=== PATIENT | male | born 1960 | race Caucasian/White ===

== ENCOUNTER 2016-10-17 06:43 | Observation (INO) ==
--- NOTE | 2016-10-17 07:12 | Emergency Department Note ---
Disposition Clinical Impression: Costalchondritis, Syncope Disposition: Admitted As Inpatient Condition: Fair General Adult HPI - General Chief complaint: ED Chest Pain Stated complaint: CP/syncope Time Seen by Provider: 10/17/16 07:01 Source: patient - History of Present Illness Pain Scale: 8 - Related Data Home Medications Medication Instructions Recorded Confirmed Chlorthalidone [Chlorthalidone] 25 mg PO DAILY 10/17/16 10/17/16 Labetalol HCl [Labetalol HCl] 200 mg PO BID 10/17/16 10/17/16 Lisinopril [Zestril] 20 mg PO BID 10/17/16 10/17/16 Omeprazole [PriLOSEC] 20 mg PO DAILY 10/17/16 10/17/16 Allergies Allergy/AdvReac Type Severity Reaction Status Date / Time Iodinated Contrast- Oral and Allergy Hives Verified 10/17/16 06:51 IV Dye Past Medical History - Past Medical History Medical history: Reports: hypertension Psychiatric history: Reports: no psych history - Social History Smoking Status: Current every day smoker Alcohol use: Reports: none Drug use: Reports: none Physical Exam - General General appearance: alert Course Vital Signs Temperature 97.4 F L 10/17/16 06:44 Pulse Rate 88 10/17/16 06:44 Respiratory Rate 20 10/17/16 06:44 Blood Pressure 136/97 10/17/16 06:44 O2 Sat by Pulse Oximetry 96 10/17/16 06:44 Temperature 98.2 F 10/17/16 15:51 Pulse Rate 81 10/17/16 15:51 Respiratory Rate 16 10/17/16 15:51 Blood Pressure 145/96 10/17/16 15:51 O2 Sat by Pulse Oximetry 96 10/17/16 15:51 Oxygen Delivery Oxygen Delivery Room Air Medical Decision Making - Lab Data Result diagrams: 10/17/16 07:05 10/17/16 07:05 Lab Results 10/17/16 10/17/16 10/17/16 Range/Units 07:05 07:05 07:05 WBC 14.8 H (4.3-11.1) K/mcL RBC 5.51 H (4.19-5.50) M/mcL Hgb 17.2 H (12.9-16.9) g/dL Hct 49.6 (37.5-50.1) % MCV 90.0 (83.0-100.0) fL MCH 31.2 (28.0-33.3) pg MCHC 34.7 (31.6-35.5) g/dL RDW 11.9 (11.5-14.5) % Plt Count 278 (140-400) K/mcL MPV 9.9 (9.4-12.4) fL Immature Gran % 0.8 (0-4) % Seg Neutrophils % 66.9 % Lymphocytes % 23.7 % Monocytes % 7.2 % Eosinophils % 0.9 % Basophils % 0.5 % Neutrophils # 9.9 H (1.6-8.9) K/mcL Lymphocytes # 3.5 (0.6-4.6) K/mcL Monocytes # 1.1 (0.0-1.3) K/mcL Eosinophils # 0.1 (0.0-0.6) K/mcL Basophils # 0.1 (0.0-0.2) K/mcL D-Dimer (0-500) ng/mLFEU Sodium 133 L (136-145) mEq/L Potassium 3.8 (3.5-4.5) mEq/L Chloride 95 L (98-109) mEq/L Carbon Dioxide 29 (19-29) mEq/L BUN 20 (8-26) mg/dL Creatinine 1.30 H (0.72-1.25) mg/dL Est GFR ( Amer) > 60 (> 60) Est GFR (Non-Af Amer) 57 L (> 60) BUN/Creatinine Ratio 15 (6-26) Glucose 115 H (70-99) mg/dL Calculated Osmolality 280 (280-300) Calcium 10.2 (8.6-10.8) mg/dL Troponin I 0.01 (0-0.03) ng/mL 10/17/16 Range/Units 07:05 WBC (4.3-11.1) K/mcL RBC (4.19-5.50) M/mcL Hgb (12.9-16.9) g/dL Hct (37.5-50.1) % MCV (83.0-100.0) fL MCH (28.0-33.3) pg MCHC (31.6-35.5) g/dL RDW (11.5-14.5) % Plt Count (140-400) K/mcL MPV (9.4-12.4) fL Immature Gran % (0-4) % Seg Neutrophils % % Lymphocytes % % Monocytes % % Eosinophils % % Basophils % % Neutrophils # (1.6-8.9) K/mcL Lymphocytes # (0.6-4.6) K/mcL Monocytes # (0.0-1.3) K/mcL Eosinophils # (0.0-0.6) K/mcL Basophils # (0.0-0.2) K/mcL D-Dimer 710 H (0-500) ng/mLFEU Sodium (136-145) mEq/L Potassium (3.5-4.5) mEq/L Chloride (98-109) mEq/L Carbon Dioxide (19-29) mEq/L BUN (8-26) mg/dL Creatinine (0.72-1.25) mg/dL Est GFR ( Amer) (> 60) Est GFR (Non-Af Amer) (> 60) BUN/Creatinine Ratio (6-26) Glucose (70-99) mg/dL Calculated Osmolality (280-300) Calcium (8.6-10.8) mg/dL Troponin I (0-0.03) ng/mL Attestation Statement - Attestation Attestation: I examined this patient and my medical decision-making was reviewed with the Resident Physician. I agree with the documented findings, disposition and treatment plan as described except to the extent set forth below. [id number] time provided Patient presents to the treatment area complaining of syncopal episode and pleuritic type chest pain. He appears in no acute distress on exam. EKG reviewed by me. Pain seen in conjunction with the resident physician Dr. Traore 09:43: Patient declines admission. He had a discussion with the resident physician and could not be convinced to stay. He is signing out against medical advice. All tests reviewed by me 09:48: Patient now agreeable to be admitted
[2016-10-17 07:20] LABS: Basophils # 0.1 K/mcL (0.0-0.2); Basophils % 0.5 %; Eosinophils # 0.1 K/mcL (0.0-0.6); Eosinophils % 0.9 %; Hematocrit 49.6 % (37.5-50.1); Hemoglobin 17.2 g/dL (12.9-16.9); Immature Granulocytes % 0.8 % (0-4); Lymphocytes # 3.5 K/mcL (0.6-4.6); Lymphocytes % 23.7 %; Mean Corpuscular HGB Conc 34.7 g/dL (31.6-35.5); Mean Corpuscular Hemoglobin 31.2 pg (28.0-33.3); Mean Platelet Volume 9.9 fL (9.4-12.4); Monocytes # 1.1 K/mcL (0.0-1.3); Monocytes % 7.2 %; Neutrophils # 9.9 K/mcL (1.6-8.9); Platelet Count 278 K/mcL (140-400); Red Blood Count 5.51 M/mcL (4.19-5.50); Red Cell Distribution Width 11.9 % (11.5-14.5); Segmented Neutrophils % 66.9 %
[2016-10-17] MEDS ORDERED: 0.9 % Sodium Chloride 1,000 ML IVC ONE (07:22)
[2016-10-17] MEDS ORDERED: Aspirin 325 MG TABLET PO ONE (07:22)
--- NOTE | 2016-10-17 07:26 | Emergency Department Note ---
Disposition Clinical Impression: Costalchondritis, Syncope Disposition: Admitted As Inpatient Condition: Fair Time of Disposition: 11:17 Chest Pain HPI - General Chief Complaint: ED Chest Pain Stated Complaint: CP/syncope Time Seen by Provider: 10/17/16 07:01 Source: patient Mode of arrival: ambulatory Limitations: no limitations Vital Signs Reviewed: Yes Nursing Notes Reviewed: Yes - History of Present Illness HPI Narrative: Patient presents to the ED with the chief complaint of left-sided chest pain and syncope. Patient reports last night he had an unprovoked syncopal episode. States that he woke up face down on his bathroom floor and does not know either he got there. After this first syncopal episode. He started having some left lateral chest discomfort that he describes as sharp, stabbing, pleuritic, also worse with movement and not with palpation. He did not get short of breath, lightheaded, dizzy with any of this. No headaches or changes in vision. 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 Reports that he decided to wait until this morning. They come in because he was unable to drive at night. Denies any history of coronary artery disease or CHF. No history DVT or PE. No history of malignancy or hormone replacement. No recent surgeries or recent long travel Severity scale (1-10): 8 - Related Data Home Medications Medication Instructions Recorded Confirmed Chlorthalidone [Chlorthalidone] 25 mg PO DAILY 10/17/16 10/17/16 Labetalol HCl [Labetalol HCl] 200 mg PO BID 10/17/16 10/17/16 Lisinopril [Zestril] 20 mg PO BID 10/17/16 10/17/16 Omeprazole [PriLOSEC] 20 mg PO DAILY 10/17/16 10/17/16 Allergies Allergy/AdvReac Type Severity Reaction Status Date / Time Iodinated Contrast- Oral and Allergy Hives Verified 10/17/16 06:51 IV Dye All systems ED: reviewed and negative except as stated. Constitutional: Denies: fever Cardiovascular: Reports: chest pain Respiratory: Denies: cough Gastrointestinal: Denies: nausea Chest Pain PMH - Past Medical History Medical history: Reports: hypertension Psychiatric history: Reports: no psych history - Social History Smoking Status: Current every day smoker Alcohol use: Reports: none Drug use: Reports: none Physical Exam - General Limitations: no limitations General appearance: alert, in no apparent distress - Head Head exam: atraumatic, normocephalic, normal inspection - Eye Eye exam: Present: normal appearance, PERRL, EOMI - ENT ENT exam: normal exam, normal oropharynx, mucous membranes moist - Neck Neck exam: Present: normal inspection, full ROM, trachea midline - Chest Chest inspection: Present: normal inspection, symmetric chest wall rise. Absent : tenderness (No tenderness, but patient's pain is isolated along the sixth or seventh rib on the left) - Respiratory Respiratory exam: Present: normal lung sounds bilaterally - Cardiovascular Cardiovascular exam: Present: regular rate, normal rhythm, normal heart sounds - Abdominal Exam Abdominal exam: Present: soft, Non-Tender. Absent: tenderness, distention, guarding, rebound, rigidity - Extremities Exam Extremities exam: Present: normal inspection, full ROM. Absent: tenderness, pedal edema - Back Exam Back exam: Present: normal inspection, full ROM. Absent: tenderness - Neurological Exam Neurological exam: Present: alert, oriented X3 - Psychiatric Psychiatric exam: Present: normal affect, normal mood - Skin Skin exam: Present: warm, dry, intact, normal color Course Course Narrative: Chest pain workup, PE also considered due to pleuritic pain and syncope. We will order a d-dimer. We will also order a CT of his brain due to history of aneurysms and syncope. - Reevaluation(s) Reevaluation #1: Patient's d-dimer is slightly elevated. We will order a CT of his chest. He does not now. Allergies contrast, but he states this is just a mild itching. He was okay with proceeding after a dose of Benadryl. Time: 07:54 Reevaluation #2: CTA negative but will admit for further syncope workup. Patient and family agreeable with plan Vital Signs Temperature 97.4 F L 10/17/16 06:44 Pulse Rate 88 10/17/16 06:44 Respiratory Rate 20 10/17/16 06:44 Blood Pressure 136/97 10/17/16 06:44 O2 Sat by Pulse Oximetry 96 10/17/16 06:44 Temperature 97.4 F L 10/17/16 06:44 Pulse Rate 68 10/17/16 09:52 Respiratory Rate 0 10/17/16 11:00 Blood Pressure 0/0 10/17/16 11:00 O2 Sat by Pulse Oximetry 98 10/17/16 09:52 Oxygen Delivery Oxygen Delivery Room Air Chest Pain - Medical Records Medical records reviewed: Yes I reviewed the patient's medical records. - Lab Data Lab results reviewed: Yes I reviewed the patient's lab results. Result diagrams: 10/17/16 07:05 10/17/16 07:05 Lab Results 10/17/16 10/17/16 10/17/16 Range/Units 07:05 07:05 07:05 WBC 14.8 H (4.3-11.1) K/mcL RBC 5.51 H (4.19-5.50) M/mcL Hgb 17.2 H (12.9-16.9) g/dL Hct 49.6 (37.5-50.1) % MCV 90.0 (83.0-100.0) fL MCH 31.2 (28.0-33.3) pg MCHC 34.7 (31.6-35.5) g/dL RDW 11.9 (11.5-14.5) % Plt Count 278 (140-400) K/mcL MPV 9.9 (9.4-12.4) fL Immature Gran % 0.8 (0-4) % Seg Neutrophils % 66.9 % Lymphocytes % 23.7 % Monocytes % 7.2 % Eosinophils % 0.9 % Basophils % 0.5 % Neutrophils # 9.9 H (1.6-8.9) K/mcL Lymphocytes # 3.5 (0.6-4.6) K/mcL Monocytes # 1.1 (0.0-1.3) K/mcL Eosinophils # 0.1 (0.0-0.6) K/mcL Basophils # 0.1 (0.0-0.2) K/mcL D-Dimer (0-500) ng/mLFEU Sodium 133 L (136-145) mEq/L Potassium 3.8 (3.5-4.5) mEq/L Chloride 95 L (98-109) mEq/L Carbon Dioxide 29 (19-29) mEq/L BUN 20 (8-26) mg/dL Creatinine 1.30 H (0.72-1.25) mg/dL Est GFR ( Amer) > 60 (> 60) Est GFR (Non-Af Amer) 57 L (> 60) BUN/Creatinine Ratio 15 (6-26) Glucose 115 H (70-99) mg/dL Calculated Osmolality 280 (280-300) Calcium 10.2 (8.6-10.8) mg/dL Troponin I 0.01 (0-0.03) ng/mL 10/17/16 Range/Units 07:05 WBC (4.3-11.1) K/mcL RBC (4.19-5.50) M/mcL Hgb (12.9-16.9) g/dL Hct (37.5-50.1) % MCV (83.0-100.0) fL MCH (28.0-33.3) pg MCHC (31.6-35.5) g/dL RDW (11.5-14.5) % Plt Count (140-400) K/mcL MPV (9.4-12.4) fL Immature Gran % (0-4) % Seg Neutrophils % % Lymphocytes % % Monocytes % % Eosinophils % % Basophils % % Neutrophils # (1.6-8.9) K/mcL Lymphocytes # (0.6-4.6) K/mcL Monocytes # (0.0-1.3) K/mcL Eosinophils # (0.0-0.6) K/mcL Basophils # (0.0-0.2) K/mcL D-Dimer 710 H (0-500) ng/mLFEU Sodium (136-145) mEq/L Potassium (3.5-4.5) mEq/L Chloride (98-109) mEq/L Carbon Dioxide (19-29) mEq/L BUN (8-26) mg/dL Creatinine (0.72-1.25) mg/dL Est GFR ( Amer) (> 60) Est GFR (Non-Af Amer) (> 60) BUN/Creatinine Ratio (6-26) Glucose (70-99) mg/dL Calculated Osmolality (280-300) Calcium (8.6-10.8) mg/dL Troponin I (0-0.03) ng/mL - Radiology Data Radiology results reviewed: Yes I reviewed the patient's radiology results. - EKG Data EKG attestation: Yes I reviewed and interpreted this EKG. EKG results narrative: Sinus rhythm, rate 85, [place] interval 163, QRS 95, QTC 410, normal axis, no acute ischemic changes
[2016-10-17 07:30] LABS: BUN/Creatinine Ratio 15 (6-26); Blood Urea Nitrogen 20 mg/dL (8-26); Calcium 10.2 mg/dL (8.6-10.8); Carbon Dioxide 29 mEq/L (19-29); Chloride 95 mEq/L (98-109); Glucose 115 mg/dL (70-99); Osmolality,Calculated 280 (280-300); Potassium 3.8 mEq/L (3.5-4.5); Sodium 133 mEq/L (136-145); eGFR For African Americans > 60 (> 60); eGFR For Non-African Americans 57 (> 60)
[2016-10-17] MEDS ORDERED: Acetaminophen 325 MG TABLET PO PRN (10:34)
[2016-10-17] MEDS ORDERED: Naloxone 0.4 MG/ML INJ IVP PRN (10:34)
--- NOTE | 2016-10-17 12:09 | Internal Med History&Physical ---
<Annabel Matias M - Last Filed: 10/17/16 12:06> Date of Encounter: 10/17/16 Time of Encounter: 12:06 Assessment and Plan (1) Syncope Current visit: Yes Status: Acute Patient reports 3 episodes of syncope last night. Syncope was preceded by brief sensation of weakness and lightheadedness. After episodes, he had diarrhea and cold sweat. Patient reports this happened to him when he had his previous aneurysms. He also reports he think he may have taken his evening medication twice, which includes 200mg of labatalol and lisinopril. It's possible syncope is secondary to drug induced hypotension. CT head was negative for acute abnormality. EKG showed NSR. Continuous bonding supervisor echocardiogram carotid dopplers orthostatic vital signs Hold BP meds for Systolic BP < 100. fall precautions Qualifiers: Syncope type: unspecified Qualified Code(s): R55 - Syncope and collapse (2) Chest pain Current visit: Yes Status: Acute Patient reports after 3 episodes of syncope last evening, he had pain in his lateral left chest, worse with movement. He denies any shortness of breath. EKG showed no ischemic changes and troponin was negative at 0.01. Patient did fall during syncopal episodes and he has small laceration on left taoism, so it' s possible he fell on his left side and pain is related to that. Will trend troponins. continuous bonding supervisor and echocardiogram. Qualifiers: Chest pain type: unspecified Qualified Code(s): R07.9 - Chest pain, unspecified (3) MARIA D (acute kidney injury) Current visit: Yes Status: Acute Creatinine of 1.30. Patient denies any history of kidney problems. Will hold lisinopril and chlorthalidone. Gently hydrate with 0.9NS at 75mL/hr. Check chemistry daily. (4) Leukocytosis Current visit: Yes Status: Acute WBC elevated to 14.8. Patient is afebrile and denies any cough, dysuria. Patient reports episode of diarrhea last night and painless bloody stool this morning, with reported history of diverticulitis. CXR shows no evidence of acute disease. UA ordered. Stool cultures and GI panel ordered. Qualifiers: Leukocytosis type: unspecified Qualified Code(s): D72.829 - Elevated white blood cell count, unspecified (5) Hematochezia Current visit: Yes Status: Acute Patient reports episode of painless bloody stool today, as well as 3 days ago. He reports he has a history of diverticulitis, and this happens from time to time. Will get FOB, GI panel and stool culture. Hgb and Hct are stable. (6) DVT prophylaxis Current visit: Yes Status: Acute sequential compression devices. Internal Medicine - H&P: HPI Chief complaint: syncope History of present illness: Mr. Lopez is a 56 year old male with hypertension, diverticulitis, history of brain aneurysms status post clipping presented to the emergency department today with complaints of syncope. Patient reports that last evening he had a sensation of lightheadedness and weakness and then passed out this happened 3 times and was followed by diarrhea and cold sweats. He also had chest pain on the left lateral side of his chest, worse with movement, that lasted all night. This morning he had a painless bloody bowel movement, and reports he had one 3 days ago as well. He reports he has a history of diverticulitis and this happens from time to time. He denies any fevers, dysuria, nausea, vomiting, abdominal pain. He denies any shortness of breath, cough, palpitations. Evaluation in emergency department revealed elevated white blood cell count of 14.8. Creatinine was also elevated at 1.30. Troponin was normal at 0.01. D- dimer was mildly elevated at 710. EKG showed normal sinus rhythm with no ischemic changes. Head CT was stable with no acute intracranial abnormality. Chest x-ray showed no evidence of acute disease. CTA showed no evidence of PE or acute pulmonary abnormality. On exam, patient alert and oriented, in no acute distress. Heart has regular rate and rhythm, lungs clear bilaterally to auscultation. Abdomen is soft nontender with positive bowel sounds. No peripheral edema. Cranial nerves are intact with no focal deficits. Past Med Surg Social Fam HX - Past Medical History Medical history: hypertension, other (brain aneurysms s/p clipping, diverticulitis) Psychiatric history: no psych history - Past Surgical History Surgical History: orthopedic, other (leg), vascular surgery (aneurysm clipping x 2 ) - Social History Smoking Status: Current every day smoker (39 pack year history) Packs per day: 1 Alcohol use: none Drug use: none - Family History Father Living Status: Still Living Hx Family Cardiac Disorders: Yes (HTN) Hx Family Endocrine Disorder: Yes (DM) Mother Living Status: Cause of : CHF Hx Family Cardiac Disorders: Yes Hx Family Endocrine Disorder: Yes (DM) Internal Medicine - H&P: Meds Chlorthalidone [Chlorthalidone] 25 mg PO DAILY 10/17/16 [History] Labetalol HCl [Labetalol HCl] 200 mg PO BID 10/17/16 [History] Lisinopril [Zestril] 20 mg PO BID 10/17/16 [History] Omeprazole [PriLOSEC] 20 mg PO DAILY 10/17/16 [History] 3 Allergy/AdvReac Type Severity Reaction Status Date / Time Iodinated Contrast- Oral and Allergy Hives Verified 10/17/16 06:51 IV Dye All Systems PM: A 10-system review of systems was performed and is negative for pertinent findings except as documented above in the HPI. - Constitutional Constitutional: no chills, no fever(s), no night sweats - EENT Eyes: no change in vision, no discharge, no pain, no photophobia Ears: no ear discharge, no ear pain, no tinnitus Nose, mouth and throat: no dysphagia, no nasal discharge, no neck pain, no sore throat - Cardiovascular Cardiovascular ROS IM: chest pain, diaphoresis, lightheadedness, syncope, no dyspnea, no palpitations - Respiratory Respiratory: no cough, no dyspnea, no wheezing, no excessive phlegm production - Gastrointestinal Gastrointestinal: diarrhea, hematochezia, no abdominal pain, no hematemesis, no melena, no nausea, no vomiting - Musculoskeletal Musculoskeletal ROS IM: no numbness, no tingling - Integumentary Integumentary IM: no rash, no unusual bruising - Neurological Neurological ROS: no confusion, no convulsions, no focal weakness, no numbness, no tingling, no tremor(s) - Hematologic/Lymphatic Hematologic/Lymphatic: no easy bruising - Constitutional Vitals: Temp Pulse Resp BP Pulse Ox 97.4 F L 68 0 0/0 98 10/17/16 06:44 10/17/16 09:52 10/17/16 11:00 10/17/16 11:00 10/17/16 09:52 General appearance: Present: A&O X 3, pleasant, no acute distress - Head Head exam: Present: atraumatic, normocephalic - Eye Eye exam: Present: PERRL, conjuntiva pink, sclera anicteric Pupils: Present: PERRL - Neck Neck exam general surgery: Present: supple, trachea midline. Absent: lymphadenopathy - Respiratory Respiratory exam: Present: CTAB. Absent: accessory muscle use, rales, rhonchi, wheezes - Cardiovascular Cardiovascular exam: Present: RRR, +S1, +S2. Absent: diastolic murmur, gallop, rubs, systolic murmur - GI/Abdominal GI/Abdominal exam: Present: normal bowel sounds, soft, no peritoneal signs. Absent: distended, tenderness - Extremities Exam Extremities exam: Present: warm, radial pulses palpable and symmetrical. Absent : calf tenderness, cyanotic, pedal edema - Neurological Exam Neurological exam: Present: CN II-XII intact, oriented X3, no focal deficits. Absent: pronater drift, facial droop, speech deficit - Skin Skin exam: Present: dry, intact Internal Med - H&P Results - Labs CBC & Chem 7: 10/17/16 07:05 10/17/16 07:05 Labs: All Lab Results (24 Hours) 10/17/16 10/17/16 10/17/16 Range/Units 07:05 07:05 07:05 WBC 14.8 H (4.3-11.1) K/mcL RBC 5.51 H (4.19-5.50) M/mcL Hgb 17.2 H (12.9-16.9) g/dL Hct 49.6 (37.5-50.1) % MCV 90.0 (83.0-100.0) fL MCH 31.2 (28.0-33.3) pg MCHC 34.7 (31.6-35.5) g/dL RDW 11.9 (11.5-14.5) % Plt Count 278 (140-400) K/mcL MPV 9.9 (9.4-12.4) fL Immature Gran % 0.8 (0-4) % Seg Neutrophils % 66.9 % Lymphocytes % 23.7 % Monocytes % 7.2 % Eosinophils % 0.9 % Basophils % 0.5 % Neutrophils # 9.9 H (1.6-8.9) K/mcL Lymphocytes # 3.5 (0.6-4.6) K/mcL Monocytes # 1.1 (0.0-1.3) K/mcL Eosinophils # 0.1 (0.0-0.6) K/mcL Basophils # 0.1 (0.0-0.2) K/mcL D-Dimer (0-500) ng/mLFEU Sodium 133 L (136-145) mEq/L Potassium 3.8 (3.5-4.5) mEq/L Chloride 95 L (98-109) mEq/L Carbon Dioxide 29 (19-29) mEq/L BUN 20 (8-26) mg/dL Creatinine 1.30 H (0.72-1.25) mg/dL Est GFR ( Amer) > 60 (> 60) Est GFR (Non-Af Amer) 57 L (> 60) BUN/Creatinine Ratio 15 (6-26) Glucose 115 H (70-99) mg/dL Calculated Osmolality 280 (280-300) Calcium 10.2 (8.6-10.8) mg/dL Troponin I 0.01 (0-0.03) ng/mL 10/17/16 Range/Units 07:05 WBC (4.3-11.1) K/mcL RBC (4.19-5.50) M/mcL Hgb (12.9-16.9) g/dL Hct (37.5-50.1) % MCV (83.0-100.0) fL MCH (28.0-33.3) pg MCHC (31.6-35.5) g/dL RDW (11.5-14.5) % Plt Count (140-400) K/mcL MPV (9.4-12.4) fL Immature Gran % (0-4) % Seg Neutrophils % % Lymphocytes % % Monocytes % % Eosinophils % % Basophils % % Neutrophils # (1.6-8.9) K/mcL Lymphocytes # (0.6-4.6) K/mcL Monocytes # (0.0-1.3) K/mcL Eosinophils # (0.0-0.6) K/mcL Basophils # (0.0-0.2) K/mcL D-Dimer 710 H (0-500) ng/mLFEU Sodium (136-145) mEq/L Potassium (3.5-4.5) mEq/L Chloride (98-109) mEq/L Carbon Dioxide (19-29) mEq/L BUN (8-26) mg/dL Creatinine (0.72-1.25) mg/dL Est GFR ( Amer) (> 60) Est GFR (Non-Af Amer) (> 60) BUN/Creatinine Ratio (6-26) Glucose (70-99) mg/dL Calculated Osmolality (280-300) Calcium (8.6-10.8) mg/dL Troponin I (0-0.03) ng/mL - Diagnostic Studies CT scan - head Additional comments: Head CT 10/17/16 07:10 IMPRESSION: Stable exam. No acute intracranial abnormality. Status post bilateral frontotemporal craniotomy/craniectomy, with multiple clips in the region of the bilateral MCA bifurcations. 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 D/ / Lloyd Francis MD / Lloyd Francis MD Interpreting Provider: Lloyd Francis MD Chest x-ray Additional comments: Chest X-Ray 10/17/16 06:51 IMPRESSION: No evidence of acute disease. D/ / Lukas Shelton MD / Lukas Shelton MD Interpreting Provider: Lukas Shelton MD CT scan - abdomen Additional comments: Chest CTA 10/17/16 07:46 IMPRESSION: No evidence of pulmonary embolism or acute pulmonary abnormality. D/ / Lukas Shelton MD / Lukas Shelton MD Interpreting Provider: Lukas Shelton MD <Lorie Milner - Last Filed: 10/17/16 18:04> Date of Encounter: 10/17/16 Time of Encounter: 15:30 Internal Medicine - H&P: HPI History of present illness: Mr. Lopez is a 56 year old male All Systems PM: A 10-system review of systems was performed and is negative for pertinent findings except as documented above in the HPI. - Constitutional Vitals: Temp Pulse Resp BP Pulse Ox 98.2 F 81 16 145/96 96 10/17/16 15:51 10/17/16 15:51 10/17/16 15:51 10/17/16 15:51 10/17/16 15:51 Internal Med - H&P Results - Labs CBC & Chem 7: 10/17/16 07:05 10/17/16 07:05 Labs: Cardiac Enzymes 10/17/16 Range/Units 12:31 Troponin I 0.01 (0-0.03) ng/mL Urine 10/17/16 Range/Units 17:15 Urine Color Yellow (Yellow) Urine Clarity Clear (Clear) Urine pH 6.0 (5.0-8.0) pH Units Ur Specific [place] 1.027 H (1.010-1.025) Urine Protein Negative (Neg-Trace) mg/dL Urine Glucose (UA) Normal (Normal) mg/dL - Attending Attestation Pt seen and examined. Admitted for syncope. concern for drug induced syncope. will admit overnight for observation and rule out cardiogenic causes contributing to syncope Case discussed with OLIVER Matias, I agree with her documented findings, assessment, and plan.
[2016-10-17] MEDS: 0.9 % Sodium Chloride 1,000 ML IVC SCH (13:07)
[2016-10-17 17:36] LABS: Bilirubin,Urine Negative (Negative); Blood,Urine Negative (Negative); Clarity,Urine Clear (Clear); Color,Urine Yellow (Yellow); Glucose,Urine (UA) Normal (Normal); Ketones,Urine Negative (Negative); Leukocyte Esterase,Urine Negative (Negative); Nitrite,Urine Negative (Negative); Protein,Urine Negative (Neg-Trace); Specific Gravity,Urine 1.027 (1.010-1.025); Urobilinogen,Urine Normal (Normal)
[2016-10-17] MEDS ORDERED: Lisinopril 20 MG TABLET PO SCH ×2 (21:00)
[2016-10-17 21:53] LABS: C.difficile Toxin A/B by PCR Not detected (Not detect); Campylobacter by PCR ***DETECTED*** (Not detect); Enteroaggregative E.coli(EAEC) Not detected (Not detect); Enteropathogenic E.coli(EPEC) Not detected (Not detect); Enterotoxigenic E.coli (ETEC) Not detected (Not detect); Plesiomonas shigelloides PCR Not detected (Not detect); Salmonella PCR Not detected (Not detect); Shigalike tox-prod E coli STEC Not detected (Not detect); Vibrio PCR Not detected (Not detect); Vibrio cholerae PCR Not detected (Not detect); Yersinia enterocolitica PCR Not detected (Not detect)
[2016-10-17 21:54] LABS: Adenovirus F 40/41 PCR Not detected (Not detect); Astrovirus PCR Not detected (Not detect); Cryptosporidium by PCR Not detected (Not detect); Cyclospora cayetanensis PCR Not detected (Not detect); E. coli O157 by PCR Not detected (Not detect); Entamoeba histolytica PCR Not detected (Not detect); Giardia lamblia PCR Not detected (Not detect); Norovirus GI/GII PCR Not detected (Not detect); Rotavirus A PCR Not detected (Not detect); Sapovirus PCR Not detected (Not detect); Shig/EnteroinvasiveE coli EIEC Not detected (Not detect)
[2016-10-18] MEDS: 0.9 % Sodium Chloride 1,000 ML IVC SCH (02:48)
[2016-10-18 06:08] LABS: Basophils # 0.1 K/mcL (0.0-0.2); Basophils % 1.7 %; Eosinophils # 0.4 K/mcL (0.0-0.6); Eosinophils % 4.5 %; Hematocrit 43.4 % (37.5-50.1); Immature Granulocytes % 0.2 % (0-4); Lymphocytes # 3.2 K/mcL (0.6-4.6); Lymphocytes % 38.7 %; Mean Corpuscular Hemoglobin 31.9 pg (28.0-33.3); Mean Platelet Volume 10.1 fL (9.4-12.4); Monocytes # 0.6 K/mcL (0.0-1.3); Monocytes % 7.8 %; Neutrophils # 3.9 K/mcL (1.6-8.9); Platelet Count 236 K/mcL (140-400); Red Blood Count 4.77 M/mcL (4.19-5.50); Red Cell Distribution Width 11.9 % (11.5-14.5); Segmented Neutrophils % 47.1 %
[2016-10-18 06:10] LABS: Hemoglobin 15.2 g/dL (12.9-16.9)
[2016-10-18 06:22] LABS: BUN/Creatinine Ratio 16 (6-26); Blood Urea Nitrogen 13 mg/dL (8-26); Calcium 8.8 mg/dL (8.6-10.8); Carbon Dioxide 28 mEq/L (19-29); Chloride 104 mEq/L (98-109); Chol/HDL Ratio 3.9 (0-4.9); Cholesterol 128 mg/dL (< 200); Glucose 85 mg/dL (70-99); HDL Cholesterol 33 mg/dL (40-59); LDL Cholesterol,Calculated 80 mg/dL (0-99); Osmolality,Calculated 289 (280-300); Potassium 3.6 mEq/L (3.5-4.5); Sodium 140 mEq/L (136-145); Triglycerides 73 mg/dL (< 150); eGFR For African Americans > 60 (> 60); eGFR For Non-African Americans > 60 (> 60)
--- NOTE | 2016-10-18 09:23 | Discharge Summary ---
Date of Encounter: 10/18/16 Time of Encounter: 09:00 - Discharge Diagnosis (1) Syncope Priority: Primary Status: Acute Comments: Unclear causation. Patient could have very well vasovagaled during his diarrhea episodes. Patient stating he also may have taken his nighttime meds twice which would include 200 mg of labetalol and lisinopril. While this doubling up of his medications could have played a factor, ruled out ischemic colitis especially given his history and his hypocoagulable state upon arrival- abdominal CT unremarkable. Qualifiers: Syncope type: unspecified Qualified Code(s): R55 - Syncope and collapse (2) Chest pain Priority: Primary Status: Ruled-out Comments: Patient with point tenderness to his left lateral chest consistent with musculoskeletal etiology. Patient stated he fell and hit the side of his chest. Troponins negative 3. Chest x-ray negative. CTA negative. ACS ruled out. Qualifiers: Chest pain type: unspecified Qualified Code(s): R07.9 - Chest pain, unspecified (3) Costalchondritis Priority: Primary Status: Acute (4) Campylobacter diarrhea Priority: Primary Status: Acute Comments: Given the recurrence of these infections in this patient, will treat with Cipro for 3 days (5) MARIA D (acute kidney injury) Priority: Primary Status: Resolved (6) Leukocytosis Priority: Primary Status: Resolved Qualifiers: Leukocytosis type: unspecified Qualified Code(s): D72.829 - Elevated white blood cell count, unspecified (7) Hematochezia Priority: Primary Status: Acute Comments: one episode. Patient stating this is normal for him. He states that approximately once every year or so, he will have a painless bloody bowel movement and then they will go away. He states that he has had several tests including colonoscopy that were all unremarkable. Hemodynamically stable. Tolerating regular diet. No abdominal pain-abdominal CT negative. (8) DVT prophylaxis Priority: Primary Status: Acute Comments: Observation patient. Up ad salvador. - Discharge Medications Prescriptions: Ciprofloxacin HCl 750 mg PO BID #5 tablet Home Medications: Chlorthalidone 25 mg PO DAILY 10/17/16 [History] Labetalol HCl 200 mg PO BID 10/17/16 [History] Lisinopril [Zestril] 20 mg PO BID 10/17/16 [History] Omeprazole [PriLOSEC] 20 mg PO DAILY 10/17/16 [History] Ciprofloxacin HCl 750 mg PO BID #5 tablet 10/18/16 [Rx] Allergies/Adverse Reactions: 3 Allergy/AdvReac Type Severity Reaction Status Date / Time Iodinated Contrast- Oral and Allergy Hives Verified 10/17/16 06:51 IV Dye Procedures/tests Complete & Pending: Procedures Performed prior 72 hours Category Date Time Status EV carotid duplex imaging BI Routine Y 10/17/16 10:36 Completed EV echocardiogram Routine Y 10/17/16 10:36 Completed Date of admission: 10/17/16 10:06 Primary care physician: Jose Luis Nicholson Jr, MD Discharging clinician: Bonnie Vyas Anticipated date of discharge: 10/18/16 - Patient Status Disposition: Home, Self-Care Condition: Fair Functional capacity at discharge: independent ambulation Overall status at discharge: patient is back to baseline - Discharge Instructions Follow Up With: Taylor Hurley CNP [Advanced Practice Nurse] - 10/26/16 11:30 am Additional Instructions: Follow-up with primary care provider as scheduled - Diet and Activity Activity: increase activity as tolerated Diet: low salt diet Hospital course: Mr. Lopez is a 56 year old male with past medical history of hypertension, diverticulitis, brain aneurysm status post clipping, tobacco abuse. Patient presented to the emergency department with a chief complaint of syncope. Patient stating on the morning prior to presentation, he had a sensation of lightheadedness, weakness, and then he passed out. Patient stating this happened 3 times and was followed by diarrhea and cold sweats. Patient also stating he had chest pain on the left lateral side of his chest that is worsened with movement and lasted all night on the night prior to presentation. On the morning of presentation, patient had a painless bloody bowel movement and reports that he had one 3 days prior to presentation as well. Patient endorsing history diverticulitis and states that bloody bowel movements occur from time to time and are self-limiting. He denied any fevers dysuria, nausea vomiting or abdominal pain. He denied shortness of breath, cough, palpitations. Workup in the emergency department notable for mild leukocytosis and mild acute kidney injury. Chest x-ray negative. Head CT negative. CTA unremarkable for acute processes. Urinalysis negative. Patient was admitted to the hospitalist service for further evaluation and management. For syncopal workup, echocardiogram was obtained which revealed ejection fraction of 66 5%, bundle branch block, mild diastolic dysfunction. Patient euvolemic on examination throughout this admission. He denies shortness of breath or chest pain throughout this admission. Regarding his bloody bowel movement, stool culture was positive for Campylobacter and his guaiac was also positive. He was treated with ciprofloxacin while admitted. Patient denied abdominal pain during this admission. He was able to tolerate a regular diet. Abdominal CT was performed to rule out ischemic colitis and it was unremarkable for acute processes. Leukocytosis resolved. Acute kidney injury resolved. Given the recurrence of these episodes, he was sent home on a 3 day course of ciprofloxacin. Another contributing factor could have been the fact that the patient feels as if he took his nighttime medications twice on the night prior to presentation which would have included 200 mg of labetalol and lisinopril. Episodes could have been drug-induced. Patient did have some point tenderness to his chest consistent with musculoskeletal etiology. Troponins negative 3. Patient stating he had his chest when he fell. ACS ruled out. Acute intra- abdominal processes ruled out. He remained hemodynamically stable with stable vital signs. He was discharged home in stable condition with close outpatient follow-up recommended. ITS Impressions Chest X-Ray 10/17/16 06:51 IMPRESSION: No evidence of acute disease. D/ / Lukas Shelton MD / Lukas Shelton MD Interpreting Provider: Lukas Shelton MD Head CT 10/17/16 07:10 IMPRESSION: Stable exam. No acute intracranial abnormality. Status post bilateral frontotemporal craniotomy/craniectomy, with multiple clips in the region of the bilateral MCA bifurcations. 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 D/ / Lloyd Francis MD / Lloyd Francis MD Interpreting Provider: Llyod Francis MD Chest CTA 10/17/16 07:46 IMPRESSION: No evidence of pulmonary embolism or acute pulmonary abnormality. D/ / Lukas Shelton MD / Lukas Shelton MD Interpreting Provider: Lukas Shelton MD Abdomen/Pelvis CT 10/18/16 09:29 IMPRESSION: 1. No acute abnormality in the abdomen/pelvis. 2. Nonobstructing left renal calculus. 3. Diverticulosis. 4. Hepatic steatosis. D/ / 10/18/2016 10:36:49 Pedro Sandra MD / marilyn Interpreting Provider: Pedro Sandra MD Echocardiogram Date of Study: 10/17/2016 Impressions: LVEF 60-65%. Normal LV chamber size, wall thickness and function. Atypical septal motion consistent with bundle branch block. Mild left ventricular diastolic dysfunction. Normal right ventricular structure and function. No evidence of pulmonary hypertension. No significant valvular dysfunction. - Time Spent with Patient Total time spent providing and/or coordinating discharge services: - Constitutional Vitals: Temp Pulse Resp BP Pulse Ox 97.6 F 72 16 125/86 95 10/18/16 06:24 10/18/16 06:24 10/18/16 06:24 10/18/16 06:24 10/18/16 06:24 General appearance: Present: A&O X 3, pleasant, no acute distress, answers questions appropriately - Head Head exam: Present: atraumatic, normocephalic - Eye Eye exam: Present: PERRL, conjuntiva pink, sclera anicteric Pupils: Present: PERRL - Neck Neck exam general surgery: Present: supple, trachea midline. Absent: lymphadenopathy - Respiratory Respiratory exam: Present: decreased breath sounds. Absent: accessory muscle use, rales, respiratory distress, rhonchi, wheezes - Cardiovascular Cardiovascular exam: Present: RRR, +S1, +S2. Absent: diastolic murmur, gallop, rubs, systolic murmur - GI/Abdominal GI/Abdominal exam: Present: normal bowel sounds, soft, no peritoneal signs. Absent: distended, tenderness - Extremities Exam Extremities exam: Present: warm, radial pulses palpable and symmetrical. Absent : calf tenderness, cyanotic, pedal edema - Neurological Exam Neurological exam: Present: alert, CN II-XII intact, normal gait, oriented X3, no focal deficits, strengths equal and symetr throughout. Absent: pronater drift, facial droop, speech deficit - Expanded Psychiatric Exam Focused psych exam: Present: restlessness - Skin Skin exam: Present: dry, intact, normal color, warm
[2016-10-18 10:45] VITALS: BP 154/97
--- NOTE | 2016-10-18 12:55 | Carotid Imaging Report ---
Carotid Duplex Patient Name:Austin Lopez Order Number:[id number] Procedure Date:10/17/2016 Date:1960ge:56 yrs Gender:Male Lt BP:119 / 82 mmHg Rt.BP:115 / 82 mmHgHeart Rate: Location:[facility] Room #: 3B16 Drawing Tracer:Nuvia Nuñez, RDDEISY Referring MD:Annabel Matias [employer]IE[employer] MECH[employer]ICAL OFFICER hepatology physician:Jose Luis Nicholson MD Reading MD:Jaspreet Kat MD Primary Indications:Syncope Risk Factors Yes/No Hypertension Yes Diabetes No Hypercholesterolemia Yes Smoking Current Yes Hx of TIA No Hx of CVA No Previous Vascular Surgery No Impressions: Findings: Bilateral carotid system has nonstenotic plaque. Findings Carotid Duplex: Right: The right proximal common carotid artery has a PSV of 72 cm/s and a EDV of 20 cm/s. The right mid common carotid artery has a PSV of 68 cm/s and a EDV of 23 cm/s. The right distal common carotid artery has a PSV of 61 cm/s and a EDV of 17 cm/s. There is nonstenotic plaque in the right bifurcation with a PSV of 55 cm/s and a EDV of 19 cm/s. There is irregular heterogeneous plaque. The right proximal internal carotid artery has a PSV of 63 cm/s and a EDV of 18 cm/s. The right mid internal carotid artery has a PSV of 54 cm/s and a EDV of 21 cm/s. The right distal internal carotid artery has a PSV of 60 cm/s and a EDV of 24 cm/s. The right eca has a PSV of 78 cm/s and a EDV of 14 cm/s. The right vertebral artery has a PSV of 18 cm/s and a EDV of 3 cm/s. Left: The left proximal common carotid artery has a PSV of 81 cm/s and a EDV of 25 cm/s. The left mid common carotid artery has a PSV of 72 cm/s and a EDV of 24 cm/s. The left distal common carotid artery has a PSV of 63 cm/s and a EDV of 18 cm/s. There is nonstenotic plaque in the left bifurcation with a PSV of 47 cm/s and a EDV of 17 cm/s. There is irregular heterogeneous plaque. The left proximal internal carotid artery has a PSV of 84 cm/s and a EDV of 35 cm/s. The left mid internal carotid artery has a PSV of 70 cm/s and a EDV of 29 cm/s. The left distal internal carotid artery has a PSV of 60 cm/s and a EDV of 22 cm/s. The left eca has a PSV of 86 cm/s and a EDV of 10 cm/s. The left vertebral artery has a PSV of 33 cm/s and a EDV of 11 cm/s. Prior Study: No prior study available for comparison. Carotid Results Right PSV EDV Assessment Proximal CCA 72 20 Normal Mid CCA 68 23 Normal Distal CCA 61 17 Normal Bifurcation 55 19 Non Stenotic Plaque Proximal ICA 63 18 Normal Mid ICA 54 21 Normal Distal ICA 60 24 Normal ECA 78 14 Normal Vertebral Artery 18 3 Normal Left PSV EDV Assessment Proximal CCA 81 25 Normal Mid CCA 72 24 Normal Distal CCA 63 18 Normal Bifurcation 47 17 Non Stenotic Plaque Proximal ICA 84 35 Normal Mid ICA 70 29 Normal Distal ICA 60 22 Normal ECA 86 10 Normal Vertebral Artery 33 11 Normal Ratio's Right ICA/CCA Ratio: 0.90 ICA/CCA Values: 63/72 Left ICA/CCA Ratio: 1.00 ICA/CCA Values: 84/81 Updated by Jaspreet Kat MD on 10/18/2016 12:48:20 PM electronically signed on 10/18/2016 12:48:38 PM with status of Final
--- NOTE | 2016-10-18 17:06 | Electrocardiograph Report ---
[place] [id number] Test Date: 2016-10-17 Pat Name: Austin Lopez Department: 105 Room: 3B16 Gender: Human Resources Professional: [place] : 1960 Requested By: Joni Morales Order Number: [id number] Reading MD: Kate Castanon Measurements Intervals [place] Rate: 85 P: 8 [place]: 163 QRS: 5 QRSD: 95 T: -5 QT: 367 QTc: 410 Interpretive Statements SINUS RHYTHM Electronically Signed On 10-18-2016 17:04:21 EDT by Kate Castanon
== END 2016-10-18 12:15 | disposition home or self-care (01) ==
LOC: EMEROO 06:43 → 3BNU 06:43
PROVIDERS: ADMIT Internal Medicine; ATTEND Nurse Practitioner Family